=== PATIENT | female | born 1935 | race Caucasian/White ===

== ENCOUNTER 2016-12-24 11:33 | Emergency (ER) | payer OTHER ==
[~2016-12-24] VITALS: Ht 165.1 cm; Wt 67.2 kg
[2016-12-24] MEDS ORDERED: IPRASOL4 INH (11:41)
[2016-12-24] MEDS ORDERED: OXGN (11:41)
[2016-12-24] MEDS ORDERED: PRED-301 PO (11:41)
[2016-12-24 11:44] VITALS: TEMP 36.8; Ht 165.1 cm; Wt 67.2 kg
[2016-12-24] MEDS ORDERED: PRLSR20 PO (11:48)
[2016-12-24] MEDS ORDERED: SITA50TA3 PO (11:48)
[2016-12-24] MEDS ORDERED: ADVIN25050 PO (11:48)
[2016-12-24] MEDS ORDERED: CZR50 PO (11:48)
[2016-12-24] MEDS ORDERED: METHYLPREDNISOLONE 125 MG VIAL IV STA (12:07)
[2016-12-24] MEDS ORDERED: ALBUT/IPRATROP 3MG/0.5MG NEB 3 ML VIAL INH STA (12:07)
[2016-12-24 12:14] VITALS: O2SAT 97
[2016-12-24 12:15] LABS: BASO % 0.9 %; COMPLETE YES; EOS % 1.5 %; IG% 3.5 %; LYMPH % 14.9 %; LYMPH ABS # 1.73 K/uL (1.2-3.4); MEAN CELL VOLUME 92.1 fL (80-100); MEAN CORPUSCULAR HEMOGLOBIN 29.6 pg (25-34); MEAN CORPUSCULAR HGB CONC 32.1 g/dl (32-36); MEAN PLATELET VOLUME 8.9 fL (7.4-10.4); MONO % 8.3 %; NEUT % 70.9 %; PLATELET COUNT 292 K/uL (130-400); RED BLOOD COUNT 4.56 M/uL (4.2-5.4); WHITE BLOOD COUNT 11.64 K/uL (4.8-10.8)
[2016-12-24 12:27] LABS: PARTIAL THROMBOPLASTIN RATIO 1.1; PROTHROMBIN TIME (PATIENT) 10.5 SECONDS (9.0-12.0)
[2016-12-24 12:34] LABS: ALT/SGPT 24 U/L (12-78); AST/SGOT 16 U/L (15-37); BLOOD UREA NITROGEN 23 mg/dl (7-18); BUN/CREATININE RATIO 25.5 (10-20); CALCIUM 10.1 mg/dl (8.5-10.1); CARBON DIOXIDE 39 mmol/L (21-32); CHLORIDE 98 mmol/L (98-107); CREATININE 0.89 mg/dl (0.60-1.20); GLUCOSE 150 mg/dl (70-99); POTASSIUM 4.2 mmol/L (3.5-5.1); SODIUM 141 mmol/L (136-145)
[2016-12-24 12:39] LABS: ALB/GLOB RATIO 0.7 (0.9-2); ALKALINE PHOSPHATASE 108 U/L (45-117)
[2016-12-24 12:56] VITALS: BP 133/81; PULSE 92
--- NOTE | 2016-12-24 13:13 | DIAGNOSTIC IMAGING REPORT ---
TWO VIEW CHEST CLINICAL HISTORY: Dyspnea. FINDINGS: PA and lateral chest radiographs are obtained. No prior studies are available for comparison at the time of dictation. The PA view is significantly degraded by patient rotation. The cardiomediastinal silhouette is unremarkable. There is atherosclerotic calcification of the thoracic aorta. A hiatal hernia is observed. Chronic appearing interstitial thickening is noted. No airspace consolidation or large pleural effusion is identified. There is no pneumothorax. The skeletal structures are osteopenic. Degenerative change and hyperkyphosis are noted in the thoracic spine. IMPRESSION: No acute cardiopulmonary abnormality. Electronically signed by: Keith Woo M.D. 12/24/2016 1:11 PM Dictated Date/Time: 12/24/2016 1:10 PM
[2016-12-24] MEDS ORDERED: AZITHROMYCIN 250 MG TAB PO STA (13:20)
[2016-12-24] MEDS ORDERED: AZITTAB PO (13:24)
[2016-12-24] MEDS ORDERED: PRED20TA PO (13:25)
--- NOTE | 2016-12-24 13:26 | EMERGENCY ROOM VISIT NOTE ---
History Report prepared by Angela: Louis Packer Under the Supervision of: Dr. Nolan Alcaraz D.O. First contact with patient: 12:06 Chief Complaint: SHORTNESS OF BREATH Stated Complaint: SHORTNESS OF BREATH Nursing Triage Summary: Patient arrives via ALS from home with complaints of increased SOB that has been occuring over the past 2 weeks, worsened this morning. Patient reports having productive cough. Patient is on 3L NC continuously. She does Duonebs at home and did one this morning but did not help with breathing. Patient has been on prednisone for the past 6 months. History of Present Illness The patient is a 81 year old female who presents to the Emergency Room with complaints of worsening shortness of breath for the past couple of weeks. The patient states that she has been having shortness of breath and a cough for the past couple of months. The patient states that she has been coughing up yellow sputum as well. The patient states that she is currently on 2 liters of oxygen at home, and she uses a nebulizer every four hours at home. Additionally she states that she is a previous smoker. Source of History: patient Onset: the past couple of weeks Position: other (global) Quality: other (shortness of breath) Timing: worsening Associated Symptoms: + cough Review of Systems See HPI for pertinent positives & negatives. A total of 10 systems reviewed and were otherwise negative. Past Medical & Surgical Medical Problems: (1) COPD (chronic obstructive pulmonary disease) (2) Hypertension Social History Smoking Status: Former Smoker Marital Status: Occupation Status: retired Current/Historical Medications Scheduled Azithromycin (Zithromax Z-Robert), 0 PO UD Fluticasone Prop/Salmeterol (Advair Diskus 250-50 Mcg/Dose), 1 PUFF PO BID Losartan Potassium (Losartan Potassium), 50 MG PO DAILY Omeprazole (Prilosec), 20 MG PO DAILY Oxygen (Oxygen), 3 LITERS NA CONTINOUS Prednisone (Prednisone), 5 MG PO DAILY Prednisone (Prednisone), 2 TAB PO DAILY Sitagliptin (Januvia), 50 MG PO DAILY Scheduled PRN Ipratropium-Albuterol (Duoneb), 1 TREATMENT INH Q4H PRN for Shortness of Breath Allergies Coded Allergies: Levofloxacin (Verified Allergy, Unknown, ., 12/24/16) Physical Exam Vital Signs Date Time Temp Pulse Resp B/P Pulse Ox O2 Delivery O2 Flow Rate FiO2 12/24/16 12:56 92 28 133/81 94 Nasal Cannula 3.0 12/24/16 12:14 97 Nasal Cannula 3.0 12/24/16 11:44 36.8 94 44 151/81 93 Nasal Cannula 3.0 12/24/16 11:44 93 Nasal Cannula 2.0 12/24/16 11:44 94 Nasal Cannula 2.0 Physical Exam CONSTITUTIONAL/VITAL SIGNS: Reviewed / noted above. GENERAL: Non-toxic in appearance. INTEGUMENTARY: Warm, dry, and [place]. HEAD: Normocephalic. EYES: without scleral icterus or trauma. ENT/OROPHARYNX: clear and moist. LYMPHADENOPATHY/NECK: Is supple without lymphadenopathy or meningismus. RESPIRATORY: Decreased breath sounds bilaterally. Expiratory wheezing. No acute respiratory distress. CARDIOVASCULAR: Regular rate and rhythm. GI/ABDOMEN: Soft and nontender. No organomegaly or pulsatile mass. No rebound or guarding. Normal bowel sounds. EXTREMITIES: Warm and well perfused. BACK: No CVA tenderness. NEUROLOGICAL: Intact without focal deficits. PSYCHIATRIC: normal affect. MUSCULOSKELETAL: Normally developed with good muscle tone. Medical Decision & Procedures ER Provider Diagnostic Interpretation: Radiology results as stated below per my review and radiologist interpretation: TWO VIEW CHEST CLINICAL HISTORY: Dyspnea. FINDINGS: PA and lateral chest radiographs are obtained. No prior studies are available for comparison at the time of dictation. The PA view is significantly degraded by patient rotation. The cardiomediastinal silhouette is unremarkable. There is atherosclerotic calcification of the thoracic aorta. A hiatal hernia is observed. Chronic appearing interstitial thickening is noted. No airspace consolidation or large pleural effusion is identified. There is no pneumothorax. The skeletal structures are osteopenic. Degenerative change and hyperkyphosis are noted in the thoracic spine. IMPRESSION: No acute cardiopulmonary abnormality. Electronically signed by: Keith Woo M.D. 12/24/2016 1:11 PM Dictated Date/Time: 12/24/2016 1:10 PM Laboratory Results 12/24/16 11:08 Red Blood Count 4.56, Mean Corpuscular Volume 92.1, Mean Corpuscular Hemoglobin 29.6, Mean Corpuscular Hemoglobin Concent 32.1, Mean Platelet Volume 8.9, Neutrophils (%) (Auto) 70.9, Lymphocytes (%) (Auto) 14.9, Monocytes (%) (Auto) 8.3, Eosinophils (%) (Auto) 1.5, Basophils (%) (Auto) 0.9, Neutrophils # (Auto) 8.26, Lymphocytes # (Auto) 1.73, Monocytes # (Auto) 0.97, Eosinophils # (Auto) 0.17, Basophils # (Auto) 0.10 12/24/16 11:08 Test 12/24/16 11:08 White Blood Count 11.64 K/uL (4.8-10.8) Red Blood Count 4.56 M/uL (4.2-5.4) Hemoglobin 13.5 g/dL (12.0-16.0) Hematocrit 42.0 % (37-47) Mean Corpuscular Volume 92.1 fL (80-100) Mean Corpuscular Hemoglobin 29.6 pg (25-34) Mean Corpuscular Hemoglobin Concent 32.1 g/dl (32-36) Platelet Count 292 K/uL (130-400) Mean Platelet Volume 8.9 fL (7.4-10.4) Neutrophils (%) (Auto) 70.9 % Lymphocytes (%) (Auto) 14.9 % Monocytes (%) (Auto) 8.3 % Eosinophils (%) (Auto) 1.5 % Basophils (%) (Auto) 0.9 % Neutrophils # (Auto) 8.26 K/uL (1.4-6.5) Lymphocytes # (Auto) 1.73 K/uL (1.2-3.4) Monocytes # (Auto) 0.97 K/uL (0.11-0.59) Eosinophils # (Auto) 0.17 K/uL (0-0.5) Basophils # (Auto) 0.10 K/uL (0-0.2) RDW Standard Deviation 49.0 fL (36.4-46.3) RDW Coefficient of Variation 14.5 % (11.5-14.5) Immature Granulocyte % (Auto) 3.5 % Immature Granulocyte # (Auto) 0.41 K/uL (0.00-0.02) Prothrombin Time 10.5 SECONDS (9.0-12.0) Prothromb Time International Ratio 1.0 (0.9-1.1) Activated Partial Thromboplast Time 29.5 SECONDS (21.0-31.0) Partial Thromboplastin Ratio 1.1 Anion Gap 4.0 mmol/L (3-11) Est Creatinine Clear Calc Drug Dose 43.9 ml/min Estimated GFR () 70.0 Estimated GFR (Non- 60.4 BUN/Creatinine Ratio 25.5 (10-20) Calcium Level 10.1 mg/dl (8.5-10.1) Total Bilirubin 0.3 mg/dl (0.2-1) Aspartate Amino Transf (AST/SGOT) 16 U/L (15-37) Alanine Aminotransferase (ALT/SGPT) 24 U/L (12-78) Alkaline Phosphatase 108 U/L (45-117) Total Creatine Kinase 77 U/L (26-192) Creatine Kinase MB 3.1 ng/ml (0.5-3.6) Creatine Kinase MB Ratio 4.0 (0-3.0) Troponin I < 0.015 ng/ml (0-0.045) Total Protein 7.5 gm/dl (6.4-8.2) Albumin 3.0 gm/dl (3.4-5.0) Globulin 4.5 gm/dl (2.5-4.0) Albumin/Globulin Ratio 0.7 (0.9-2) Laboratory results as stated above per my review. Medications Administered Medications (Trade) Dose Ordered Sig/Roly Route Start Time Stop Time Status Last Admin Dose Admin Albuterol/ Ipratropium (Duoneb) 3 ml NOW STAT INH 12/24/16 12:07 12/24/16 12:09 DC 12/24/16 12:21 3 ML Methylprednisolone Sodium Succinate (Solu-Medrol IV) 125 mg NOW STAT IV 12/24/16 12:07 12/24/16 12:09 DC 12/24/16 12:22 125 MG ECG Indication: SOB/dyspnea Rate (beats per minute): 91 Rhythm: sinus rhythm (with sinus arrhythmia) Findings: RBBB, other (No acute injury) ED Course 1206: Previous medical records were reviewed. The patient was evaluated in room C10. A complete history and physical examination was performed. 1207: Solu-Medrol IV 125mg IV, DuoNeb 3ml INH 1320: Zithromax Tab 500mg PO 1322: On reevaluation, the patient is feeling well. I discussed the results and findings with the patient. She verbalized agreement of the treatment plan. She was discharged home. Medical Decision the differential was considered includes acute myocardial infarction, acute coronary syndrome, myocarditis, pericarditis, pericardial effusions /tamponad, esophageal perforation, pulmonary embolism, pneumonia, pneumothorax, cardiomyopathy, congestive heart, anemia , COPD/asthma exacerbation. This is an 81-year-old female who presents to the ED with a chief complaint of shortness of breath. The patient has been short of breath for a couple of weeks and has had a productive cough for a couple of months. She reports a green and yellow sputum. She states that her breathing seems a little worse this morning than it has been. The patient is chronically on 2-3 L nasal cannula oxygen. She has DuoNeb treatments that she is using every 4 hours and is chronically on prednisone 5 mg by mouth. The patient has a relatively normal exam with exception of diminished breath sounds and some expiratory wheezing. She is in no distress. She has mild increased work of breathing although this looks somewhat chronic. The patient's chest x-ray did not show acute disease. CBC is unremarkable. The BUN is 23. The glucose is 150. Troponin is negative. The patient was treated with a DuoNeb treatment, Solu- Medrol IV as well as by mouth Zithromax. The patient will be discharged on Zithromax and prednisone. She is felt to be stable for discharge and outpatient follow-up. She will return for any worsening or new concerns. Impression Primary Impression: Chronic obstructive pulmonary disease Additional Impression: Acute bronchitis Scribe Attestation The scribe's documentation has been prepared under my direction and personally reviewed by me in its entirety. I confirm that the note above accurately reflects all work, treatment, procedures, and medical decision making performed by me. Departure Information Dispostion Home / Self-Care Prescriptions Prednisone (Prednisone) 20 Mg Tab 2 TAB PO DAILY, #5 TAB Prov: Nolan Alcaraz D.O. 12/24/16 Azithromycin (ZITHROMAX Z-ROBERT) 250 Mg Tab 0 PO UD, #1 PKT 2 TABS DAY 1, THEN 1 TAB DAILY FOR 4 DAYS Prov: Nolan Alcaraz D.O. 12/24/16 Referrals Jude Roque (PCP) Forms HOME CARE DOCUMENTATION FORM, IMPORTANT VISIT INFORMATION Patient Instructions My [facility] Additional Instructions Zithromax as prescribed. Prednisone as prescribed. Continue albuterol nebulizers every 2-4 hours as needed for shortness of breath. Follow-up with your doctor. Return for any concerns or worsening. Problem Qualifiers
[2016-12-24 13:30] VITALS: O2SAT 96
== END 2016-12-24 13:47 | disposition home or self-care (01) ==
LOC: EDBD 11:33 → C.EDC 11:37
DX: J44.0 Chronic obstructive pulmonary disease with (acute) lower respiratory infection (principal); Z99.81 Dependence on supplemental oxygen; Z87.891 Personal history of nicotine dependence; I10 Essential (primary) hypertension; Z79.899 Other long term (current) drug therapy

== ENCOUNTER 2017-02-06 20:34 | Emergency (ER) | payer OTHER ==
[~2017-02-06] VITALS: Ht 165.1 cm; Wt 61.0 kg
[~2017-02-06 20:34] MED LIST: ADVIN25050 PO; CZR50 PO; IPRASOL4 INH; OXGN; PRED-301 PO; PRED20TA PO; PRLSR20 PO; SITA50TA3 PO
[2017-02-06 20:48] VITALS: Ht 165.1 cm; Wt 61.0 kg
[2017-02-06] MEDS ORDERED: FUROSEMIDE 40 MG/4 ML VIAL IV STA (21:33)
[2017-02-06 21:43] LABS: BASO % 0.4 %; BASO ABS # 0.04 K/uL (0-0.2); COMPLETE YES; EOS % 1.5 %; HEMATOCRIT 43.2 % (37-47); IG% 0.6 %; LYMPH ABS # 0.99 K/uL (1.2-3.4); MEAN CELL VOLUME 95.2 fL (80-100); MEAN CORPUSCULAR HEMOGLOBIN 28.4 pg (25-34); MEAN CORPUSCULAR HGB CONC 29.9 g/dl (32-36); MEAN PLATELET VOLUME 9.4 fL (7.4-10.4); MONO % 5.4 %; NEUT % 82.1 %; PLATELET COUNT 235 K/uL (130-400); RED BLOOD COUNT 4.54 M/uL (4.2-5.4); WHITE BLOOD COUNT 9.88 K/uL (4.8-10.8)
[2017-02-06 21:48] LABS: BUN/CREATININE RATIO 29.2 (10-20); CREATININE 0.78 mg/dl (0.60-1.20); POTASSIUM 4.4 mmol/L (3.5-5.1)
--- NOTE | 2017-02-06 21:49 | EMERGENCY ROOM VISIT NOTE ---
History Report prepared by Angela: Son Nicholson Under the Supervision of: Dr. Jagdish Kearney D.O. First contact with patient: 21:26 Chief Complaint: SHORTNESS OF BREATH Stated Complaint: SOB Nursing Triage Summary: increasing sob over last 2 weeks. hx copd new onset swelling ble, shoes tight family visit joesph, called 911 for evaluation pt on home o2 and breathing tx without relief earlier today. History of Present Illness The patient is an 81 year old female who presents to the Emergency Room with complaints of constant, worsening shortness of breath beginning two weeks ago. The patient states that any kind of exertion makes her symptoms worse. She reports that she sleeps on her right side because she had a left hip replacement , and she cannot lay on her back. The patient notes that her lower extremities have edema that began one week ago. She states that she is here tonight because her children convinced her of coming in. The patient reports that she has not had a history of fluid back-up in her legs or lungs. She complains of a cough, but denies fevers and chest pain. The patient notes she does not take Lasix. She reports that she has a history of COPD and emphysema. Source of History: patient Onset: one week ago Position: other (global) Quality: other (shortness of breath) Timing: constant, worsening Modifying Factors (Worsening): exertion Associated Symptoms: + cough, No chills, No fevers Review of Systems See HPI for pertinent positives and negatives. A total of ten systems were reviewed and were otherwise negative. Past Medical & Surgical Medical Problems: (1) COPD (chronic obstructive pulmonary disease) (2) Hypertension Family History No pertinent family history stated. Social History Smoking Status: Former Smoker Marital Status: Occupation Status: retired Current/Historical Medications Scheduled Calcium Carbonate-Vitamin D (Oscal 500/200 D-3), 1 TAB PO DAILY Fluticasone Prop/Salmeterol (Advair Diskus 250-50 Mcg/Dose), 1 PUFF PO BID Furosemide (Lasix), 20 MG PO DAILY Losartan Potassium (Losartan Potassium), 50 MG PO DAILY Multiple Vitamins W/ Minerals (Centrum Silver), 1 TAB PO DAILY Alpine-3 Fatty Acids (Alpine 3), 1 CAP PO DAILY Omeprazole (Prilosec), 20 MG PO DAILY Oxygen (Oxygen), 3 LITERS NA CONTINOUS Prednisone (Prednisone), 5 MG PO DAILY Sitagliptin (Januvia), 50 MG PO DAILY Scheduled PRN Ipratropium-Albuterol (Duoneb), 1 TREATMENT INH Q4H PRN for Shortness of Breath Allergies Coded Allergies: Levofloxacin (Verified Allergy, Unknown, ., 02/06/17) Physical Exam Vital Signs Date Time Temp Pulse Resp B/P Pulse Ox O2 Delivery O2 Flow Rate FiO2 02/06/17 21:59 96 Nasal Cannula 4.0 02/06/17 20:53 101 02/06/17 20:48 96 Nasal Cannula 4.0 02/06/17 20:48 36.9 97 18 167/87 97 Nasal Cannula 4.0 02/06/17 20:48 97 Nasal Cannula 4.0 Physical Exam GENERAL: Awake, alert, well-appearing, in no distress HENT: Normocephalic, atraumatic. Oropharynx unremarkable. EYES: Normal conjunctiva. Sclera non-icteric. NECK: Supple. No nuchal rigidity. FROM. No JVD. RESPIRATORY: Crackles. CARDIAC: Regular rate, normal rhythm. Extremities warm and well perfused. Pulses equal. ABDOMEN: Soft, non-distended. No tenderness to palpation. No rebound or guarding. No masses. RECTAL: Deferred. MUSCULOSKELETAL: Chest examination reveals no tenderness. The back is symmetrical on inspection without obvious abnormality. There is no CVA tenderness to palpation. No joint edema. LOWER EXTREMITIES: Calves are equal size bilaterally and non-tender. 4+ bilateral pitting edema. No discoloration. NEURO: Normal sensorium. No sensory or motor deficits noted. SKIN: No rash or jaundice noted. Medical Decision & Procedures ER Provider Diagnostic Interpretation: X-ray: Per my interpretation, radiologist review. SINGLE VIEW CHEST CLINICAL HISTORY: Dyspnea. FINDINGS: An AP, portable, upright chest radiograph is obtained compared to study dated 12/24/2016. The examination is degraded by portable technique and patient rotation. The heart is top normal for projection and there is atherosclerotic calcification of the thoracic aorta. The pulmonary vasculature is noncongested. A hiatal hernia is observed. Chronic appearing interstitial thickening is noted. There is bibasilar atelectasis. No airspace consolidation is seen typical for pneumonia and there is no large pleural effusion identified. There is no pneumothorax. The skeletal structures are osteopenic. Degenerative change is noted throughout the thoracic spine. IMPRESSION: No acute cardiopulmonary abnormality. Electronically signed by: Keith Woo M.D. 02/06/2017 10:03 PM Dictated Date/Time: 02/06/2017 10:01 PM Laboratory Results 02/06/17 20:20 Red Blood Count 4.54, Mean Corpuscular Volume 95.2, Mean Corpuscular Hemoglobin 28.4, Mean Corpuscular Hemoglobin Concent 29.9, Mean Platelet Volume 9.4, Neutrophils (%) (Auto) 82.1, Lymphocytes (%) (Auto) 10.0, Monocytes (%) (Auto) 5.4, Eosinophils (%) (Auto) 1.5, Basophils (%) (Auto) 0.4, Neutrophils # (Auto) 8.11, Lymphocytes # (Auto) 0.99, Monocytes # (Auto) 0.53, Eosinophils # (Auto) 0.15, Basophils # (Auto) 0.04 02/06/17 20:20 Test 02/06/17 20:20 02/06/17 21:43 White Blood Count 9.88 K/uL (4.8-10.8) Red Blood Count 4.54 M/uL (4.2-5.4) Hemoglobin 12.9 g/dL (12.0-16.0) Hematocrit 43.2 % (37-47) Mean Corpuscular Volume 95.2 fL (80-100) Mean Corpuscular Hemoglobin 28.4 pg (25-34) Mean Corpuscular Hemoglobin Concent 29.9 g/dl (32-36) Platelet Count 235 K/uL (130-400) Mean Platelet Volume 9.4 fL (7.4-10.4) Neutrophils (%) (Auto) 82.1 % Lymphocytes (%) (Auto) 10.0 % Monocytes (%) (Auto) 5.4 % Eosinophils (%) (Auto) 1.5 % Basophils (%) (Auto) 0.4 % Neutrophils # (Auto) 8.11 K/uL (1.4-6.5) Lymphocytes # (Auto) 0.99 K/uL (1.2-3.4) Monocytes # (Auto) 0.53 K/uL (0.11-0.59) Eosinophils # (Auto) 0.15 K/uL (0-0.5) Basophils # (Auto) 0.04 K/uL (0-0.2) RDW Standard Deviation 54.5 fL (36.4-46.3) RDW Coefficient of Variation 15.4 % (11.5-14.5) Immature Granulocyte % (Auto) 0.6 % Immature Granulocyte # (Auto) 0.06 K/uL (0.00-0.02) Anion Gap 5.0 mmol/L (3-11) Est Creatinine Clear Calc Drug Dose 50.0 ml/min Estimated GFR () 82.1 Estimated GFR (Non- 70.8 BUN/Creatinine Ratio 29.2 (10-20) Calcium Level 9.3 mg/dl (8.5-10.1) Total Bilirubin 0.3 mg/dl (0.2-1) Aspartate Amino Transf (AST/SGOT) 23 U/L (15-37) Alanine Aminotransferase (ALT/SGPT) 25 U/L (12-78) Alkaline Phosphatase 110 U/L (45-117) Pro-B-Type Natriuretic Peptide 80 pg/ml (0-1800) Total Protein 7.6 gm/dl (6.4-8.2) Albumin 3.3 gm/dl (3.4-5.0) Globulin 4.3 gm/dl (2.5-4.0) Albumin/Globulin Ratio 0.8 (0.9-2) Bedside Troponin I 0.010 ng/ml (0-0.045) Laboratory results reviewed by me Medications Administered Medications (Trade) Dose Ordered Sig/Roly Route Start Time Stop Time Status Last Admin Dose Admin Furosemide (Lasix Inj) 40 mg NOW STAT IV 02/06/17 21:33 02/06/17 21:35 DC 02/06/17 22:00 40 MG ECG Indication: SOB/dyspnea Rate (beats per minute): 99 Rhythm: sinus rhythm Findings: RBBB (incomplete), no acute ischemic change, other (normal axis) ED Course 2129: The patient was evaluated in room A09B. A complete history and physical exam was performed. 2132: Ordered Lasix Inj 40mg IV 5: I reevaluated the patient and discussed her exam results. She is in no distress and has no shortness of breath. I discussed the treatment plan, and the patient verbalized complete understanding. She was discharged home. Medical Decision Congestive heart failure, renal failure, COPD exacerbation, pneumonia. Medication Reconciliation: I attest that I have personally reviewed the patient' s current medication list. Blood pressure screening: Patient was found to have normal blood pressure on screening and does not require follow-up. Patient on reexamination resting in no distress not hypoxic is no chest pain. Patient has no current evidence of congestive heart failure. Patient does have swollen legs but no evidence of any tenderness in the cast make me suspect pulmonary embolism. Patient was given IV Lasix. I discussed the evaluation with the patient patient's family at bedside and I will offer a course of Lasix for the next week. Impression Primary Impression: COPD (chronic obstructive pulmonary disease) Additional Impression: Leg edema Scribe Attestation The scribe's documentation has been prepared under my direction and personally reviewed by me in its entirety. I confirm that the note above accurately reflects all work, treatment, procedures, and medical decision making performed by me. Departure Information Dispostion Home / Self-Care Prescriptions Furosemide (LASIX) 20 Mg Tab 20 MG PO DAILY for 10 Days, #10 CAP Prov: Jagdish Kearney, 02/06/17 Referrals Pawel Keita M.D. (PCP) Patient Instructions ED Dyspnea Shortness of Breath, My [facility] Problem Qualifiers
[2017-02-06 21:52] LABS: ALB/GLOB RATIO 0.8 (0.9-2)
[2017-02-06] MEDS ORDERED: MULTCHW PO (21:56)
[2017-02-06] MEDS ORDERED: CALC200T PO (21:56)
[2017-02-06] MEDS ORDERED: OMEG12006 PO (21:56)
[2017-02-06 21:59] VITALS: O2SAT 96
[2017-02-06 22:02] LABS: CALCIUM 9.3 mg/dl (8.5-10.1)
--- NOTE | 2017-02-06 22:04 | DIAGNOSTIC IMAGING REPORT ---
SINGLE VIEW CHEST CLINICAL HISTORY: Dyspnea. FINDINGS: An AP, portable, upright chest radiograph is obtained compared to study dated 12/24/2016. The examination is degraded by portable technique and patient rotation. The heart is top normal for projection and there is atherosclerotic calcification of the thoracic aorta. The pulmonary vasculature is noncongested. A hiatal hernia is observed. Chronic appearing interstitial thickening is noted. There is bibasilar atelectasis. No airspace consolidation is seen typical for pneumonia and there is no large pleural effusion identified. There is no pneumothorax. The skeletal structures are osteopenic. Degenerative change is noted throughout the thoracic spine. IMPRESSION: No acute cardiopulmonary abnormality. Electronically signed by: Keith Woo M.D. 02/06/2017 10:03 PM Dictated Date/Time: 02/06/2017 10:01 PM
[2017-02-06] MEDS ORDERED: FURO20TA PO (22:33)
[2017-02-06 22:39] VITALS: BP 151/85; PULSE 89; TEMP 36.9; O2SAT 96
== END 2017-02-06 22:40 | disposition home or self-care (01) ==
LOC: EDBD 20:34 → C.EDA 20:36
DX: J44.9 Chronic obstructive pulmonary disease, unspecified (principal); R60.0 Localized edema; Z96.642 Presence of left artificial hip joint; I10 Essential (primary) hypertension; Z87.891 Personal history of nicotine dependence; Z79.01 Long term (current) use of anticoagulants; Z79.899 Other long term (current) drug therapy

== ENCOUNTER 2017-02-12 13:58 | Emergency (ER) | payer OTHER ==
[~2017-02-12] VITALS: Ht 165.1 cm; Wt 64.6 kg
[~2017-02-12 13:58] MED LIST changes: +CALC200T PO; +FURO20TA PO; +MULTCHW PO; +OMEG12006 PO; -PRED20TA PO
[2017-02-12 14:10] VITALS: TEMP 36.7; O2SAT 95; Ht 165.1 cm; Wt 64.6 kg
[2017-02-12] MEDS ORDERED: SODIUM CHLORIDE 0.9% 1000ML 1,000 ML IV STA (14:38)
[2017-02-12 14:56] LABS: BASO % 0.2 %; BASO ABS # 0.03 K/uL (0-0.2); COMPLETE YES; EOS % 0.8 %; HEMATOCRIT 43.5 % (37-47); IG% 0.7 %; LYMPH % 10.3 %; LYMPH ABS # 1.35 K/uL (1.2-3.4); MEAN CELL VOLUME 94.2 fL (80-100); MEAN CORPUSCULAR HGB CONC 30.8 g/dl (32-36); MEAN PLATELET VOLUME 9.6 fL (7.4-10.4); MONO % 8.3 %; NEUT % 79.7 %; PLATELET COUNT 246 K/uL (130-400); RED BLOOD COUNT 4.62 M/uL (4.2-5.4); WHITE BLOOD COUNT 13.17 K/uL (4.8-10.8)
[2017-02-12 15:05] LABS: ALT/SGPT 29 U/L (12-78); AST/SGOT 27 U/L (15-37); BLOOD UREA NITROGEN 21 mg/dl (7-18); BUN/CREATININE RATIO 26.2 (10-20); CALCIUM 9.7 mg/dl (8.5-10.1); CARBON DIOXIDE 39 mmol/L (21-32); CHLORIDE 90 mmol/L (98-107); CREATININE 0.82 mg/dl (0.60-1.20); GLUCOSE 122 mg/dl (70-99); MAGNESIUM 2.1 mg/dl (1.8-2.4); PARTIAL THROMBOPLASTIN RATIO 1.1; POTASSIUM 4.3 mmol/L (3.5-5.1); PROTHROMBIN TIME (PATIENT) 10.2 SECONDS (9.0-12.0); SODIUM 135 mmol/L (136-145)
--- NOTE | 2017-02-12 15:10 | DIAGNOSTIC IMAGING REPORT ---
CHEST ONE VIEW PORTABLE CLINICAL HISTORY: EVALUATE ALTERED MENTAL STATUS/WEAKNESS COMPARISON STUDY: June 26 FINDINGS: The heart is mildly enlarged. There is a retrocardiac opacity suspicious for a hiatal hernia. There is a suspected small diaphragmatic eventration/hernia on the left. There is diffuse interstitial thickening, similar to the preceding study. There is no lobar consolidation.[ IMPRESSION: Cardiomegaly and interstitial thickening similar to the preceding studies. No evidence of acute lobar consolidation Electronically signed by: Lars Garcia M.D. 02/12/2017 3:09 PM Dictated Date/Time: 02/12/2017 3:07 PM
[2017-02-12 15:11] LABS: ALKALINE PHOSPHATASE 103 U/L (45-117); CKMB/CK RATIO 3.5 (0-3.0)
--- NOTE | 2017-02-12 15:27 | DIAGNOSTIC IMAGING REPORT ---
CT HEAD WITHOUT CONTRAST (CT) CLINICAL HISTORY: Change in mental status. Weakness. COMPARISON STUDY: No previous studies for comparison. TECHNIQUE: Axial CT of the brain is performed from the vertex to the skull base. IV contrast was not administered for this examination. CT DOSE: 1141.75 mGycm FINDINGS: No intra or extra-axial mass lesions are visualized. There is no CT evidence of acute cortical infarction. There is no evidence of midline shift. There is no acute hemorrhage. No calvarial fractures are visualized. There are patchy white matter hypodensities likely on a small vessel basis. There is no evidence of pathologic ventricular dilatation. There is complete opacification the right maxilla sinus. There is a left maxilla sinus air-fluid level. There is a small amount of fluid within the sphenoid sinus. There are multiple opacified ethmoid air cells. There is partial opacification the right frontal sinus. IMPRESSION: Pansinus disease. Otherwise no acute intracranial findings. Electronically signed by: Lars Garcia M.D. 02/12/2017 3:26 PM Dictated Date/Time: 02/12/2017 3:25 PM
[2017-02-12 15:55] LABS: ARTERIAL BLD GAS O2 SATURATION 88.6 % (90-95); ARTERIAL BLOOD GAS BASE EXCESS 11.7 mEq/L (-9-1.8); ARTERIAL BLOOD GAS HCO3 40 mmol/L (19-24); ARTERIAL BLOOD GAS PO2 60 mm/Hg (80-95); ARTERIAL BLOOD GAS pH 7.37 (7.35-7.45)
[2017-02-12] MEDS ORDERED: SULFAMETHOXAZOLE/TRIMETHOPRIM DS 800/160MG TAB PO ONE (16:00)
[2017-02-12 16:05] LABS: URINE APPEARANCE CLEAR (CLEAR); URINE BILIRUBIN NEG (NEG); URINE COLOR YELLOW; URINE NITRITE NEG (NEG); URINE SPECIFIC GRAVITY 1.017 (1.000-1.030); UROBILINOGEN NEG (NEG); ZZURINE CULT IF INDIC CATH NO
--- NOTE | 2017-02-12 16:08 | EMERGENCY ROOM VISIT NOTE ---
History Report prepared by Angela: Son Nicholson Under the Supervision of: Dr. Nolan Alcaraz D.O. First contact with patient: 14:25 Chief Complaint: OTHER COMPLAINT Stated Complaint: RESPIRATORY History of Present Illness The patient is an 81 year old female who presents to the Emergency Room with complaints of intermittent, worsening visual hallucinations beginning two weeks ago. She reports that her hallucinations began worsening 3 days ago. The patient states that she is seeing silly things. She reports that when it began she saw people walking by and ignoring her. The patient notes that at first she was wondering what was going on, but now she knows they were hallucinations. She states that she gets her hallucinations everywhere, at her house, at the hospital. The patient reports that this morning the squirrels joined her for lunch today on the stove. She patient denies auditory hallucinations, abdominal pain, and fevers. The patient complains of a chronic cough. She reports that she just started Lasix and Celexa for the edema in her legs. The patient's daughter states that the patient will droop her head, and then start acting strange. She reports that the patient called her neighbor last night and asked her if she was home. The daughter reports the patient was here 5 days ago due to edema of the lower extremities. She notes the patient is diabetic. Source of History: patient, family Onset: two weeks ago Position: other (global) Quality: other (visual hallucinations) Timing: intermittent, worsening Associated Symptoms: + cough (Chronic), No fevers, No abdominal pain Note: Patient denies auditory hallucinations Review of Systems See HPI for pertinent positives & negatives. A total of 10 systems reviewed and were otherwise negative. Past Medical & Surgical Medical Problems: (1) COPD (chronic obstructive pulmonary disease) (2) Hypertension Family History No pertinent family history stated. Social History Smoking Status: Former Smoker Alcohol Use: occasionally Marital Status: Housing Status: lives alone Occupation Status: retired Current/Historical Medications Scheduled Citalopram (Citalopram Hydrobromide), 20 MG PO DAILY Fluticasone Prop/Salmeterol (Advair Diskus 250-50 Mcg/Dose), 1 PUFF PO BID Furosemide (Lasix), 20 MG PO DAILY Losartan Potassium (Losartan Potassium), 50 MG PO DAILY Multiple Vitamins W/ Minerals (Centrum Silver), 1 TAB PO DAILY Oak[place]-3 Fatty Acids ([place]akley 3), 1 CAP PO DAILY Omeprazole (Prilosec), 20 MG PO DAILY Oxygen (Oxygen), 3 LITERS NA CONTINOUS Prednisone (Prednisone), 5 MG PO DAILY Sitagliptin (Januvia), 50 MG PO DAILY Sulfa/Trimethoprim (Bactrim Ds 800MG/160MG), 1 TAB PO BID Scheduled PRN Ipratropium-Albuterol (Duoneb), 1 TREATMENT INH Q4H PRN for Shortness of Breath Allergies Coded Allergies: Levofloxacin (Verified Allergy, Unknown, ., 02/12/17) Physical Exam Vital Signs Date Time Temp Pulse Resp B/P (MAP) Pulse Ox O2 Delivery O2 Flow Rate FiO2 02/12/17 17:05 97 29 92 02/12/17 17:02 151/101 02/12/17 16:50 97 32 91 02/12/17 16:35 102 32 91 02/12/17 16:20 90 24 91 02/12/17 16:05 90 31 89 02/12/17 16:02 156/79 02/12/17 15:50 91 26 90 02/12/17 15:45 98 31 149/79 84 02/12/17 15:40 159/82 02/12/17 15:00 118 24 94 02/12/17 14:10 36.7 105 26 169/100 94 Nasal Cannula 3.0 02/12/17 14:10 95 Nasal Cannula 3.0 02/12/17 14:08 94 Physical Exam CONSTITUTIONAL/VITAL SIGNS: Reviewed / noted above. GENERAL: Non-toxic in appearance. General weakness. INTEGUMENTARY: Warm, dry, and [place]. HEAD: Normocephalic. EYES: without scleral icterus or trauma. ENT/OROPHARYNX: clear and moist. LYMPHADENOPATHY/NECK: Is supple without lymphadenopathy or meningismus. RESPIRATORY: Lungs clear and equal. Diminished breath sound bilaterally. CARDIOVASCULAR: Regular rate and rhythm. GI/ABDOMEN: Soft and nontender. No organomegaly or pulsatile mass. No rebound or guarding. Normal bowel sounds. EXTREMITIES: Warm and well perfused. Minimal peripheral edema in the lower extremities. BACK: No CVA tenderness. NEUROLOGICAL: Intact without focal deficits. PSYCHIATRIC: normal affect. MUSCULOSKELETAL: Normally developed with good muscle tone. Medical Decision & Procedures ER Provider Diagnostic Interpretation: Radiology results as stated below per my review and radiologist interpretation: CT HEAD WITHOUT CONTRAST (CT) CLINICAL HISTORY: Change in mental status. Weakness. COMPARISON STUDY: No previous studies for comparison. TECHNIQUE: Axial CT of the brain is performed from the vertex to the skull base. IV contrast was not administered for this examination. CT DOSE: 1141.75 mGycm FINDINGS: No intra or extra-axial mass lesions are visualized. There is no CT evidence of acute cortical infarction. There is no evidence of midline shift. There is no acute hemorrhage. No calvarial fractures are visualized. There are patchy white matter hypodensities likely on a small vessel basis. There is no evidence of pathologic ventricular dilatation. There is complete opacification the right maxilla sinus. There is a left maxilla sinus air-fluid level. There is a small amount of fluid within the sphenoid sinus. There are multiple opacified ethmoid air cells. There is partial opacification the right frontal sinus. IMPRESSION: Pansinus disease. Otherwise no acute intracranial findings. Electronically signed by: Lars Garcia M.D. 02/12/2017 3:26 PM Dictated Date/Time: 02/12/2017 3:25 PM CHEST ONE VIEW PORTABLE CLINICAL HISTORY: EVALUATE ALTERED MENTAL STATUS/WEAKNESS COMPARISON STUDY: June 26 FINDINGS: The heart is mildly enlarged. There is a retrocardiac opacity suspicious for a hiatal hernia. There is a suspected small diaphragmatic eventration/hernia on the left. There is diffuse interstitial thickening, similar to the preceding study. There is no lobar consolidation.[ IMPRESSION: Cardiomegaly and interstitial thickening similar to the preceding studies. No evidence of acute lobar consolidation Electronically signed by: Lars Garcia M.D. 02/12/2017 3:09 PM Dictated Date/Time: 02/12/2017 3:07 PM Laboratory Results 02/12/17 13:29 Red Blood Count 4.62, Mean Corpuscular Volume 94.2, Mean Corpuscular Hemoglobin 29.0, Mean Corpuscular Hemoglobin Concent 30.8, Mean Platelet Volume 9.6, Neutrophils (%) (Auto) 79.7, Lymphocytes (%) (Auto) 10.3, Monocytes (%) (Auto) 8.3, Eosinophils (%) (Auto) 0.8, Basophils (%) (Auto) 0.2, Neutrophils # (Auto) 10.50, Lymphocytes # (Auto) 1.35, Monocytes # (Auto) 1.09, Eosinophils # (Auto) 0.11, Basophils # (Auto) 0.03 02/12/17 13:29 Test 02/12/17 13:29 02/12/17 15:35 02/12/17 15:43 White Blood Count 13.17 K/uL (4.8-10.8) Red Blood Count 4.62 M/uL (4.2-5.4) Hemoglobin 13.4 g/dL (12.0-16.0) Hematocrit 43.5 % (37-47) Mean Corpuscular Volume 94.2 fL (80-100) Mean Corpuscular Hemoglobin 29.0 pg (25-34) Mean Corpuscular Hemoglobin Concent 30.8 g/dl (32-36) Platelet Count 246 K/uL (130-400) Mean Platelet Volume 9.6 fL (7.4-10.4) Neutrophils (%) (Auto) 79.7 % Lymphocytes (%) (Auto) 10.3 % Monocytes (%) (Auto) 8.3 % Eosinophils (%) (Auto) 0.8 % Basophils (%) (Auto) 0.2 % Neutrophils # (Auto) 10.50 K/uL (1.4-6.5) Lymphocytes # (Auto) 1.35 K/uL (1.2-3.4) Monocytes # (Auto) 1.09 K/uL (0.11-0.59) Eosinophils # (Auto) 0.11 K/uL (0-0.5) Basophils # (Auto) 0.03 K/uL (0-0.2) RDW Standard Deviation 52.5 fL (36.4-46.3) RDW Coefficient of Variation 15.1 % (11.5-14.5) Immature Granulocyte % (Auto) 0.7 % Immature Granulocyte # (Auto) 0.09 K/uL (0.00-0.02) Prothrombin Time 10.2 SECONDS (9.0-12.0) Prothromb Time International Ratio 1.0 (0.9-1.1) Activated Partial Thromboplast Time 28.8 SECONDS (21.0-31.0) Partial Thromboplastin Ratio 1.1 Anion Gap 3.0 mmol/L (3-11) Est Creatinine Clear Calc Drug Dose 47.6 ml/min Estimated GFR () 77.2 Estimated GFR (Non- 66.6 BUN/Creatinine Ratio 26.2 (10-20) Calcium Level 9.7 mg/dl (8.5-10.1) Magnesium Level 2.1 mg/dl (1.8-2.4) Total Bilirubin 0.3 mg/dl (0.2-1) Direct Bilirubin < 0.1 mg/dl (0-0.2) Aspartate Amino Transf (AST/SGOT) 27 U/L (15-37) Alanine Aminotransferase (ALT/SGPT) 29 U/L (12-78) Alkaline Phosphatase 103 U/L (45-117) Total Creatine Kinase 194 U/L (26-192) Creatine Kinase MB 6.7 ng/ml (0.5-3.6) Creatine Kinase MB Ratio 3.5 (0-3.0) Troponin I < 0.015 ng/ml (0-0.045) Total Protein 7.7 gm/dl (6.4-8.2) Albumin 3.7 gm/dl (3.4-5.0) Lipase 113 U/L (73-393) Thyroid Stimulating Hormone (TSH) 2.760 uIu/ml (0.300-4.500) Arterial Blood pH 7.37 (7.35-7.45) Arterial Blood Partial Pressure CO2 71 mmHg (35-46) Arterial Blood Partial Pressure O2 60 mm/Hg (80-95) Arterial Blood HCO3 40 mmol/L (19-24) Arterial Blood Oxygen Saturation 88.6 % (90-95) Arterial Blood Base Excess 11.7 mEq/L (-9-1.8) Arterial Blood Gas Delivery 2L Jovi Test POS (POS) Urine Color YELLOW Urine Appearance CLEAR (CLEAR) Urine pH 6.0 (4.5-7.5) Urine Specific [place] 1.017 (1.000-1.030) Urine Protein NEG (NEG) Urine Glucose (UA) NEG (NEG) Urine Ketones NEG (NEG) Urine Occult Blood 1+ (NEG) Urine Nitrite NEG (NEG) Urine Bilirubin NEG (NEG) Urine Urobilinogen NEG (NEG) Urine Leukocyte Esterase NEG (NEG) Urine WBC (Auto) 1-5 /hpf (0-5) Urine RBC (Auto) 0-4 /hpf (0-4) Urine Hyaline Casts (Auto) 1-5 /lpf (0-5) Urine Epithelial Cells (Auto) 10-20 /lpf (0-5) Urine Bacteria (Auto) NEG (NEG) Laboratory results as stated above per my review. Medications Administered Medications (Trade) Dose Ordered Sig/Roly Route Start Time Stop Time Status Last Admin Dose Admin Sodium Chloride 1,000 ml @ 250 mls/hr Q4H STAT IV 02/12/17 14:38 02/12/17 18:37 02/12/17 14:38 250 MLS/HR Trimethoprim/ Sulfamethoxazole (Septra Ds 800/ 160MG Tab) 1 tab NOW ONCE PO 02/12/17 16:00 02/12/17 16:01 DC 02/12/17 16:10 1 TAB Albuterol/ Ipratropium (Duoneb) 3 ml NOW STAT INH 02/12/17 17:49 02/12/17 17:50 DC 02/12/17 17:49 3 ML ECG Indication: altered mental status Rate (beats per minute): 93 Rhythm: sinus with SA Findings: no acute ischemic change, no ectopy ED Course 1427: Previous medical records were reviewed. The patient was evaluated in room A02. A complete history and physical examination was performed. 1438: Ordered Sodium Chloride 1000 ml @ 250 mls/hr IV 1600: Ordered Trimethoprim/Sulfamethoxazole 1 tab PO 1601: I reevaluated the patient, and she is resting and in no distress. I discussed her exam findings with her and her family. 1737: On reevaluation, the patient is resting. I discussed the results and findings with the patient. She verbalized agreement of the treatment plan. She will be discharged home after she receives her breathing treatment. 1749: Ordered Duoneb 3ml INH. Medical Decision Differential includes acute coronary syndrome, myocardial infarction, CVA, TIA, anemia, infection, pneumonia, UTI, pyelonephritis, poor nutrition, dehydration, electrolyte disturbance,hypoglycemia. Medication Reconciliation: I attest that I have personally reviewed the patient' s current medication list. Blood pressure Screening: Patient was found to have an elevated blood pressure and was referred to their primary doctor for recheck and further treatment. This is an 81-year-old female who presents to the ED with a chief complaint of hallucinations. The patient reports some visual hallucinations for the past couple of weeks. It is been worse over the past 2-3 days. She has been seeing people who were not present. She saw some squirrels on her oven this morning. The patient recently was placed on Celexa and Lasix 3 days ago for lower extremity edema. The edema has improved. Her physical exam reveals some dry mucous membranes. There is no CVA lower extremity edema. She is currently not having any hallucinations. Neurological exam was unremarkable. CT scan of the head did not shows pansinusitis disease. A chest x-ray did not show acute disease. CBC reveals an elevated white blood cell count of 13. The BUN is 21. Troponin is negative. TSH was normal. ABG reveals a normal acid base status with hypercarbia (compensated) and adequate oxygenation on her typical nasal cannula oxygen. Urine did not show obvious infection. The patient was given a DuoNeb treatment here. She was given some Bactrim by mouth and IV fluids. She is felt to be stable for discharge. In addition to the sinus infection, the hallucinations could be related to hypoxia and/or hypercarbia when the patient falls asleep. I did recommend CPAP but the patient uses to use anything on her face as she is claustrophobic. I suggested observation the hospital but the patient declined this. She will follow-up with her PCP. Impression Primary Impression: Hallucination, visual Additional Impressions: COPD (chronic obstructive pulmonary disease) Hypercarbia Scribe Attestation The scribe's documentation has been prepared under my direction and personally reviewed by me in its entirety. I confirm that the note above accurately reflects all work, treatment, procedures, and medical decision making performed by me. Departure Information Dispostion Home / Self-Care Prescriptions Sulfa/Trimethoprim (Bactrim Ds 800MG/160MG) Tab 1 TAB PO BID, #20 TAB Prov: Nolan Alcaraz D.O. 02/12/17 Referrals Pawel Keita M.D. (PCP) Patient Instructions My [facility] Additional Instructions Follow-up with your doctor as scheduled tomorrow. Bactrim as prescribed sinus infection. Return for any concerns or worsening. Problem Qualifiers
[2017-02-12 16:09] LABS: MANUAL MICROSCOPIC REQUIRED? NO; REVIEW REQ? NO
[2017-02-12 16:16] LABS: ALLEN TEST POS (POS); O2 ADMINISTRATION 2L
[2017-02-12] MEDS ORDERED: CLX20 PO (16:17)
[2017-02-12] MEDS ORDERED: ALBUT/IPRATROP 3MG/0.5MG NEB 3 ML VIAL INH STA (17:49)
[2017-02-12] MEDS ORDERED: SULF800T23 PO (18:04)
[2017-02-12 20:06] VITALS: BP 148/80; PULSE 88; O2SAT 92
== END 2017-02-12 20:08 | disposition home or self-care (01) ==
LOC: EDBD 13:58 → C.EDA 14:00
DX: R44.1 Visual hallucinations (principal); R06.89 Other abnormalities of breathing; J44.9 Chronic obstructive pulmonary disease, unspecified; I10 Essential (primary) hypertension; E11.9 Type 2 diabetes mellitus without complications; Z87.891 Personal history of nicotine dependence